=== PATIENT | male | born 1980 | race African-American/Black ===

== ENCOUNTER 2017-05-23 18:38 | Inpatient (IN) | payer SELFPAY ==
[2017-05-23] MEDS ORDERED: ONDANSETRON 4 MG/2 ML VIAL IVPB ONE (19:32)
[2017-05-23] MEDS ORDERED: SODIUM CHLORIDE 1,000 ML IV STA (19:32)
[2017-05-23] MEDS ORDERED: morphine CARPU-JECT 4 MG/1 ML DISP.SYRIN IVPUSH ONE ×2 (19:32→19:52)
[2017-05-23] MEDS ORDERED: ONDANSETRON 4 MG/2 ML VIAL ONE (19:35)
[2017-05-23] MEDS ORDERED: morphine CARPU-JECT 4 MG/1 ML DISP.SYRIN ONE ×3 (19:40→23:17)
[2017-05-23 19:57] LABS: BASOPHIL 0.6 % (0-2.0); EOSINOPHIL 0.4 % (0-4.5); MCH 32.4 pg (25.7-33.7); MCHC 34.8 g/dl (32.0-35.9); MEAN CELL VOLUME 92.9 fl (80-96); NEUTROPHILS 77.6 % (42.8-82.8); PLATELET COUNT 157 K/MM3 (134-434); WHITE BLOOD COUNT 7.5 K/mm3 (4.0-10.0)
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
[2017-05-23 20:22] LABS: ALBUMIN 4.2 g/dl (3.4-5.0); ANION GAP 7 (8-16); CALCIUM 9.6 mg/dL (8.5-10.1); CO2 26 mmol/L (21-32); GLUCOSE,RANDOM 105 mg/dL (74-106)
[2017-05-23 20:24] LABS: ALK PHOS 93 U/L (45-117); BILIRUBIN,TOTAL 1.3 mg/dL (0.2-1.0); CREATININE 1.2 mg/dL (0.7-1.3); SGOT/AST 21 U/L (15-37); SGPT/ALT 29 U/L (12-78); TOT PROT 7.4 g/dl (6.4-8.2)
[2017-05-23 22:36] LABS: URINE APPEARANCE CLEAR; URINE BILIRUBIN NEGATIVE (NEGATIVE); URINE BLOOD NEGATIVE (NEGATIVE); URINE COLOR YELLOW; URINE GLUCOSE (UA) NEGATIVE (NEGATIVE); URINE KETONE 1+ (NEGATIVE); URINE LEUK ESTERASE NEGATIVE (NEGATIVE); URINE NITRITE NEGATIVE (NEGATIVE); URINE PROTEIN NEGATIVE (NEGATIVE); URINE UROBILINOGEN NEGATIVE mg/dL (0.2-1.0)
[2017-05-23] MEDS ORDERED: ONDANSETRON 4 MG/2 ML VIAL IVPUSH PRN (22:55)
[2017-05-23] MEDS ORDERED: morphine CARPU-JECT 2 MG/1 ML DISP.SYRIN IVPUSH PRN (22:55)
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
[2017-05-23] MEDS ORDERED: ACETAMINOPHEN 325 MG TABLET (FP) PO PRN (23:06)
[2017-05-23] MEDS: SODIUM CHLORIDE 1,000 ML IV SCH ×2 (23:25→23:58)
[2017-05-23] MEDS ORDERED: ACETAMINOPHEN 1000 MG/100 ML VIAL (NON FORMULARY) IVPB PRN (23:32)
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
[2017-05-24] MEDS ORDERED: PT OWN MED DRAWER 7, Y5N ONE ×2 (01:14→10:14)
[2017-05-24 02:40] VITALS: BMI 22.8
[2017-05-24] MEDS: morphine CARPU-JECT 4 MG/1 ML DISP.SYRIN IVPUSH PRN ×4 (04:27→23:42)
[2017-05-24 08:17] LABS: BASOPHIL 0.4 % (0-2.0); EOSINOPHIL 1.5 % (0-4.5); MCH 32.3 pg (25.7-33.7); MCHC 34.7 g/dl (32.0-35.9); MEAN CELL VOLUME 93.1 fl (80-96); MEAN PLT VOLUME 9.2 fl (7.5-11.1); NEUTROPHILS 59.2 % (42.8-82.8); PLATELET COUNT 139 K/MM3 (134-434); RDW 12.9 % (11.9-15.9); WHITE BLOOD COUNT 5.1 K/mm3 (4.0-10.0)
[2017-05-24] MEDS ORDERED: FLU VACCINE QUAD 60 MCG/0.5 ML (MDV 17-18) IM ONE (09:00)
[2017-05-24 09:03] LABS: ALBUMIN 3.1 g/dl (3.4-5.0); ANION GAP 5 (8-16); BILIRUBIN,TOTAL 1.1 mg/dL (0.2-1.0); CALCIUM 7.9 mg/dL (8.5-10.1); CO2 27 mmol/L (21-32); GLUCOSE,RANDOM 77 mg/dL (74-106); MAGNESIUM 1.9 mg/dL (1.8-2.4); PHOSPHOROUS 2.9 mg/dL (2.5-4.9); SGOT/AST 16 U/L (15-37); SGPT/ALT 25 U/L (12-78); TOT PROT 5.6 g/dl (6.4-8.2)
[2017-05-24 09:04] LABS: ALK PHOS 73 U/L (45-117)
[2017-05-24] MEDS ORDERED: POLYETHYLENE GLYCOL 3350 119 GM BTL PO SCH (10:00)
[2017-05-24] MEDS: PANTOPRAZOLE SODIUM 40 MG in SODIUM CHLORIDE 100 ML IVPB SCH (10:35)
[2017-05-24] MEDS: SODIUM CHLORIDE 1,000 ML IV SCH ×2 (12:56→19:14)
--- NOTE | 2017-05-24 12:59 | EKG ---
Test Reason : Blood Pressure : / mmHG Vent. Rate : 062 BPM Atrial Rate : 062 BPM P-R Int : 116 ms QRS Dur : 092 ms QT Int : 396 ms P-R-T Axes : 068 077 061 degrees QTc Int : 401 ms NORMAL SINUS RHYTHM CANNOT RULE OUT INFERIOR INFARCT , AGE UNDETERMINED NO PREVIOUS ECGS AVAILABLE Confirmed by MICHELLE VANESSA MD ([id number]) on 05/24/2017 12:59:01 PM Referred By: Confirmed By:MICHELLE VANESSA MD
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
[2017-05-25] MEDS: SODIUM CHLORIDE 1,000 ML IV SCH (05:44)
[2017-05-25] MEDS: morphine CARPU-JECT 4 MG/1 ML DISP.SYRIN IVPUSH PRN (08:27)
[2017-05-25] MEDS ORDERED: PT OWN MED DRAWER 7, Y5N ONE (09:39)
[2017-05-25] MEDS: PANTOPRAZOLE SODIUM 40 MG in SODIUM CHLORIDE 100 ML IVPB SCH (09:41)
[2017-05-25 11:40] VITALS: BP 117/62; PULSE 65; TEMP 98.2
--- NOTE | 2017-05-25 11:59 | PN ---
Progress Note (short form) - Note Progress Note: Attending Surgeon No c/o; tolerated clear liquids; passing flatus VSS AF abdomen-soft; flat and non tender; minimal tympany IMP: resolving SBO PLAN: Advance diet as tolertaed and d/c if tolertaed. Rajat Almaguer MD FACS
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
== END 2017-05-25 15:06 | disposition home or self-care (01) | DRG 247 ==
LOC: JER 18:38 → JERBED 22:28 → INTOOBSV 22:28 → OBSVTOIN 23:06 → J5S 23:51
PROVIDERS: ADMIT Internal Medicine; ATTEND Nurse Practitioner Acute Care
DX: K56.699 Other intestinal obstruction unspecified as to partial versus complete obstruction (principal); F10.10 Alcohol abuse, uncomplicated; R11.2 Nausea with vomiting, unspecified; R10.32 Left lower quadrant pain
CPT/HCPCS: 36415; 74020-TC; 74177-TC; 80053; 81003; 83690; 83735; 84100; 85025; 90688; 93005; 93010; 99285-25; G0008; G0378